=== PATIENT | male | born 1935 | race Caucasian/White ===

== ENCOUNTER → 2020-09-21 09:03 | Outpatient (CLI) | payer MEDICARE, SELFPAY ==
--- NOTE | 2020-09-21 | DI.CT.S_ITS ---
PROCEDURE: CT LUMBAR SPINE WO CON INDICATIONS: spondylolisthesis lumbar region TECHNIQUE: Noncontrast 3 mm thick sections acquired from the T12 level to the sacrum. Sagittal and coronal reformats were constructed. For radiation dose reduction, the following was used: automated exposure control. COMPARISON: [facility], MR, L-SPINE WITHOUT CONTRAST, 08/12/2017, 9:21. [facility] [place] [facility], CR, XR LUMBAR SPINE 2 OR 3 VIEWS, 03/30/2018, 11:47. [facility] [place], CR, XR LUMBAR SPINE 2 OR 3 VIEWS, 12/31/2018, 13:19. FINDINGS: Image quality: There is artifact associated with the metallic hardware. Bones: This patient has transitional lumbar anatomy. For the purposes of this examination, the level with the last well-developed disc space is considered to be L5-S1. By this numbering scheme, there are no ribs seen associated with the level that is labeled as T12. The L5 level is highly sacralized. This numbering scheme chosen to remain consistent with the prior MRI dated 08/12/2017. Postoperative changes are seen, with bilateral pedicle screws at the L3 through L5 levels. The screws appear well placed. Vertical fixation rods are seen. Disc spacers are seen at L3-L4 and L4-L5. Lucency is seen surrounding several screws, including both L3 screws, right worse than left, the right L4 screw, and both L5 screws, right worse than left. There has been removal of portions of the posterior elements. Bone grafting material is noted. Minimal retrolisthesis can be seen at L1-L2, L2-L3, and L3-L4. Minimal anterolisthesis is seen at L4-L5. No displaced fractures are seen. No suspicious lytic or blastic lesions are seen. T11-T12: Mild loss of disc height is seen. Bridging endplate osteophytes are seen. No significant neural foraminal or central canal narrowing can be seen. T12-L1: There is mild loss of disc height seen. Bridging endplate osteophytes are seen. No significant neural foraminal or central canal narrowing can be seen. L1-L2: Kjga-ns-vgcevjnq loss of disc height is seen. Mild to moderate disc bulge is seen. At least moderate bilateral neural foraminal narrowing can be seen. Moderate central canal narrowing is seen. The degree of central canal narrowing is believed to be slightly progressed compared to 2017. L2-L3: The disc height is relatively preserved. At least moderate disc bulge is seen. There is a mild central disc protrusion. At least moderate bilateral neural foraminal narrowing can be seen. Moderate to severe central canal narrowing is seen at this level. These degenerative changes appear progressed compared to 2017. L3-L4: Postoperative changes are seen at this level. Moderate generalized disc bulge is seen. Moderate bilateral neural foraminal narrowing is seen. No definite central canal narrowing can be seen. The degree of central canal narrowing is improved compared to the preoperative MRI. L4-L5: There are postoperative changes seen at this level. Moderate generalized disc bulge is seen. There is at least moderate left-sided and aoaw-so-puxnzfqw right-sided neural foraminal narrowing seen. Mild central canal narrowing is seen. The degrees of central canal narrowing and right-sided neural foraminal narrowing are improved compared to 2017. L5-S1: The disc height is well preserved. Mild disc bulge is seen. Mild to moderate bilateral neural foraminal narrowing can be seen. Mild central canal narrowing is seen. When comparison is made with the prior examination, these findings are similar. Soft tissues: No retroperitoneal masses or hematomas. Visualized aorta is normal in caliber. IMPRESSION: L3 through L5 postoperative hardware, with loosening of several screws noted. Improvement in degrees of narrowing at L3-L4 and L4-L5 compared to preoperative MRI. Mild interval progression of degenerative change compared to 2017 at L1-L2 and L2-L3. Dictated by: Gage Bradford M.D. on 09/21/2020 at 8:58 Approved by: Gage Bradford M.D. on 09/21/2020 at 9:10
== END ==
PROVIDERS: Referring Provider Orthopaedic Surgery Orthopaedic Surgery of the Spine; Visit Provider Orthopaedic Surgery Orthopaedic Surgery of the Spine
DX: M43.16 Spondylolisthesis, lumbar region (principal); M47.816 Spondylosis without myelopathy or radiculopathy, lumbar region; T84.226A Displacement of internal fixation device of vertebrae, initial encounter; M48.061 Spinal stenosis, lumbar region without neurogenic claudication; M48.07 Spinal stenosis, lumbosacral region
CPT/HCPCS: 72131

== ENCOUNTER → 2021-02-21 11:51 | Outpatient (CLI) | payer MEDICARE, SELFPAY ==
[2021-02-21 19:10] LABS: Add Manual Diff / Slide Review NO; Basophils Absolute Auto 100 /uL (0-100); Basophils Percent Auto 1.3 % (0-2); Eosinophils Absolute Auto 200 /uL (0-450); Eosinophils Percent Auto 3.3 % (2-4); Hematocrit 44.6 % (41-53); Hemoglobin 15.3 g/dL (13.5-17.5); Lymphocytes Absolute Auto 1000 /uL (1100-4500); Lymphocytes Percent Auto 16.6 % (25-40); Mean Corpuscular HGB Conc 34.2 % (30-36); Mean Corpuscular Hemoglobin 31.9 PG (26-34); Mean Corpuscular Volume 93.2 fL (80-100); Monocytes Absolute Auto 500 /uL (0-900); Monocytes Percent Auto 8.8 % (3-14); Neutrophils Absolute Auto 4300 /uL (1500-7000); Platelet Count 157 X10^3/uL (150-400); Red Blood Cell Count 4.78 X10^6/uL (4.5-5.9); White Blood Cell Count 6.2 X10^3/uL (4.5-11.0)
[2021-02-21 19:56] LABS: Alanine Aminotransferase 17 IU/L (<50); Albumin 4.2 g/dL (3.5-5.0); Albumin Globulin Ratio 1.8 (1.0-2.8); Alkaline Phosphatase 54 U/L (38-126); Aspartate Aminotransferase 27 IU/L (17-59); BUN Creatinine Ratio 21.3 (6-22); Bilirubin Total 0.9 mg/dL (0.2-1.3); Blood Urea Nitrogen 17 mg/dL (9-20); Calcium 10.2 mg/dL (8.4-10.2); Carbon Dioxide 27 mmol/L (22-32); Chloride 103 mmol/L (98-107); Estimated Glomerular Filt Rate > 60.0 mL/min (>60); Globulin 2.3 g/dL (1.7-4.1); Glucose 111 mg/dL (80-110); HEMOLYSIS < 15 (0-50); Potassium 3.7 mmol/L (3.4-5.1); Sodium 138 mmol/L (137-145); Total Protein 6.5 g/dL (6.3-8.2)
== END ==
PROVIDERS: PCP Family Medicine; Visit Provider Family Medicine
DX: I10 Essential (primary) hypertension (principal); E78.2 Mixed hyperlipidemia
CPT/HCPCS: 80053; 85025

== ENCOUNTER → 2021-08-03 10:01 | Outpatient (CLI) | payer MEDICARE, SELFPAY ==
[2021-08-03 20:12] LABS: Hemoglobin A1C% w Est Avg Glu 5.3 % (4.0-6.0)
[2021-08-03 20:22] LABS: Alanine Aminotransferase 14 IU/L (<50); Albumin 4.3 g/dL (3.5-5.0); Albumin Globulin Ratio 1.8 (1.0-2.8); Alkaline Phosphatase 58 U/L (38-126); Aspartate Aminotransferase 27 IU/L (17-59); BUN Creatinine Ratio 27.2 (6-22); Blood Urea Nitrogen 22 mg/dL (9-20); Carbon Dioxide 32 mmol/L (22-32); Chloride 101 mmol/L (98-107); Cholesterol 187 mg/dL (140-199); Estimated Glomerular Filt Rate > 60.0 mL/min (>60); Globulin 2.4 g/dL (1.7-4.1); Glucose 107 mg/dL (80-110); HDL Cholesterol 43 mg/dL (40-60); HEMOLYSIS < 15 (0-50); LDL Cholesterol Calculated 119 mg/dL (<100); Potassium 3.7 mmol/L (3.4-5.1); Sodium 141 mmol/L (137-145); Total Protein 6.7 g/dL (6.3-8.2); Triglycerides 126 mg/dL (35-150)
[2021-08-03 20:48] LABS: Prostate Specific Antigen Scrn 63.5 ng/mL (0.1-4.0)
== END ==
PROVIDERS: PCP Family Medicine; Visit Provider Family Medicine
DX: I10 Essential (primary) hypertension (principal); Z12.5 Encounter for screening for malignant neoplasm of prostate; Z98.1 Arthrodesis status; N40.0 Benign prostatic hyperplasia without lower urinary tract symptoms
CPT/HCPCS: 80053; 80061; 83036; G0103

== ENCOUNTER → 2021-08-20 09:02 | Outpatient (CLI) | payer MEDICARE, SELFPAY ==
[2021-08-21 21:13] LABS: Prostate Specific Antigen 58.5 ng/mL (0.10-4.00)
== END ==
PROVIDERS: PCP Family Medicine; Visit Provider Family Medicine
DX: N40.1 Benign prostatic hyperplasia with lower urinary tract symptoms (principal); R39.14 Feeling of incomplete bladder emptying
CPT/HCPCS: 84153

== ENCOUNTER → 2021-09-24 12:37 | Outpatient (CLI) | payer MEDICARE, SELFPAY | PROVIDERS: PCP Family Medicine; Referring Provider Urology; Visit Provider Urology | DX: N40.1 Benign prostatic hyperplasia with lower urinary tract symptoms (principal); R39.14 Feeling of incomplete bladder emptying; R39.9 Unspecified symptoms and signs involving the genitourinary system; N42.9 Disorder of prostate, unspecified; R97.20 Elevated prostate specific antigen [PSA] | CPT/HCPCS: 51798; 81002; 87086; 99215 ==

== ENCOUNTER → 2021-10-04 11:07 | Outpatient (CLI) | payer MEDICARE, SELFPAY ==
--- NOTE | 2021-10-04 11:08 | DI.MRI.S_ITS ---
PROCEDURE: MR PELIS WO/W CON INDICATIONS: PSA in the 58 range evaluate prostate TECHNIQUE: Coronal HASTE, axial T1 FSE with fat saturation, 3-plane nonbreath-hold T2 FSE. After the administration of contrast, dynamic axial, delayed axial and coronal VIBE or 2-D FLASH with fat saturation through the pelvis. Optional diffusion weighted imaging and ADC may be performed. COMPARISON: None. FINDINGS: Image quality: Diffusion weighted and dynamic contrast enhanced images are diagnostic. Prostate: Gland size is 6.3 x 5.4 x 5.6 cm; ellipsoid gland volume is 99 mL. Lesion size(s): Lesion 1: 4.3 x 5.4 x 1.7 cm. Lesion location(s) (sector): Lesion 1: Right posterior, lateral peripheral zone, and posteriorly extending across the midline to involve left posteromedial peripheral zone from apex to base. Lesion description: Lesion 1: Large curvilinear area of hypointensity with irregular posterior margin extending through the posterior capsule as well as into the right, possibly left seminal vesicle base and right neurovascular bundle. T2 weighted imaging (T2WI) morphology score: Lesion 1: 5 Diffusion weighted imaging (DWI) morphology score: Lesion 1: 5 Dynamic contrast enhancement (DCE): Lesion 1: Present Lesion PI-RADS score: Lesion 1: PI-RADS 5 Genitourinary system: The urinary bladder is partially decompressed and the wall demonstrates diffuse thickening primarily anteriorly. Bowel and peritoneum: No pathologic free pelvic fluid. Inferior colon and small bowel loops are normal in caliber. Nodes and vessels: There is marked bulky bilateral inguinal, external iliac and common iliac chain adenopathy. There is an abnormal superior rectal chain lymph node. The cranial extent of adenopathy is not visible on this field of view. Soft tissues: Very small bilateral inguinal hernias. Bones: Marrow pattern is heterogeneous. There is an enhancing round lesion in the greater trochanter of the right proximal femur. Partially imaged surgical changes in the lower lumbar spine. IMPRESSION: 1. Large PI-RADS five peripheral zone right sided prostate mass with extraprostatic extension. 2. Extensive metastatic pelvic adenopathy. 3. Heterogeneous marrow signal with at least one discrete enhancing right proximal femur lesion. Further staging studies are recommended. Dictated by: Heather Chambers M.D. on 10/04/2021 at 14:58 Approved by: Heather Chambers M.D. on 10/04/2021 at 15:20
== END ==
PROVIDERS: PCP Family Medicine; Referring Provider Urology; Visit Provider Urology
DX: C77.5 Secondary and unspecified malignant neoplasm of intrapelvic lymph nodes (principal); C80.1 Malignant (primary) neoplasm, unspecified; N42.9 Disorder of prostate, unspecified; R97.20 Elevated prostate specific antigen [PSA]; M89.9 Disorder of bone, unspecified
CPT/HCPCS: 72197; A9579

== ENCOUNTER → 2021-10-19 11:08 | Outpatient (CLI) | payer MEDICARE, SELFPAY ==
[2021-10-19 11:48] LABS: BUN Creatinine Ratio 23.3 (6-22); Blood Urea Nitrogen 17 mg/dL (9-20); Calcium 10.3 mg/dL (8.4-10.2); Carbon Dioxide 31 mmol/L (22-32); Chloride 104 mmol/L (98-107); Estimated Glomerular Filt Rate > 60.0 mL/min (>60); Glucose 104 mg/dL (80-110); HEMOLYSIS < 15 (0-50); Potassium 3.8 mmol/L (3.4-5.1); Sodium 139 mmol/L (137-145)
== END ==
PROVIDERS: PCP Family Medicine; Referring Provider Urology; Visit Provider Urology
DX: C61 Malignant neoplasm of prostate (principal); R97.20 Elevated prostate specific antigen [PSA]; N42.9 Disorder of prostate, unspecified
CPT/HCPCS: 36415; 80048; 99214

== ENCOUNTER → 2021-11-06 11:39 | Outpatient (CLI) | payer MEDICARE, SELFPAY ==
--- NOTE | 2021-11-06 11:41 | DI.CT.S_ITS ---
PROCEDURE: CT ABDOMEN PELVIS W CON INDICATIONS: prostate cancer TECHNIQUE: After the administration of oral and IV contrast, axial sections were acquired from the lung bases to the pubic symphysis. Coronal and sagittal reformats were performed. For radiation dose reduction, the following was used: automated exposure control, adjustment of mA and/or kV according to patient size. COMPARISON: [facility], CT, CT LUMBAR SPINE WO CON, 09/21/2020, 9:08. [facility], CT, ABDOMEN/PELVIS WITH CONTRAST, 04/03/2010, 10:12. [facility], MR, MR PELVIS WO/W CON, 10/04/2021, 11:37. FINDINGS: Image quality: Excellent. Lung bases: Unremarkable. Heart: No significant findings. ABDOMEN: Liver: Unremarkable. Gallbladder: Unremarkable. Biliary ducts: Unremarkable. Pancreas: Unremarkable. Spleen: The spleen is mildly enlarged measuring 14 cm in greatest axial dimension. No focal suspicious splenic lesion can be seen. Adrenal Glands: Unremarkable. Kidneys and Ureters: Unremarkable. Stomach and Bowel: Stomach, small bowel loops, and colon are unremarkable. Colonic diverticulosis is seen, without findings of active diverticulitis. Peritoneum: No abnormal intraperitoneal fluid. No free air. Ventral Wall: No hernia. Abdominal Nodes: No retroperitoneal or mesenteric adenopathy by size criteria. Vessels: Aorta and inferior vena cava are normal in size. Atherosclerotic calcification is noted. PELVIS: Pelvic Organs: The patient's known right-sided prostate mass is much better seen by MRI. Bladder: Moderate circumferential wall thickening can be seen. Pelvic Nodes: Bulky bilateral external iliac chain lymph nodes can be seen. Miscellaneous: There is a fat containing right inguinal hernia. Bones: Several sclerotic foci can be seen within the bones, notably at the T10, L1, and L2 levels. Notably, these are not seen (even in retrospect) on the 09/21/[address] examination. There is a stable bone island seen involving the right proximal femur, which is stable compared to 2009. Lower lumbar postoperative hardware can be seen. Lucency is again seen adjacent to the screws, notably at the right L5 screw. Generalized degenerative changes are seen. IMPRESSION: The patient's known right prostate mass is much better seen by MRI. Bulky bilateral external iliac chain lymph nodes are seen. Bony metastases are seen, which are new from prior imaging. Lower lumbar postoperative hardware, with lucency seen adjacent to the screws. Incidental note is made of: Mild splenomegaly. Diverticulosis Moderate circumferential bladder wall thickening Fat containing right inguinal hernia Dictated by: Gage Bradford M.D. on 11/06/2021 at 17:09 Approved by: Gage Bradford M.D. on 11/06/2021 at 17:16
== END ==
PROVIDERS: PCP Family Medicine; Referring Provider Urology; Visit Provider Urology
DX: C61 Malignant neoplasm of prostate (principal); C79.51 Secondary malignant neoplasm of bone; R59.0 Localized enlarged lymph nodes; R97.20 Elevated prostate specific antigen [PSA]; N42.9 Disorder of prostate, unspecified; R39.9 Unspecified symptoms and signs involving the genitourinary system
CPT/HCPCS: 74177; 96402; 99214; J9217; Q9967

== ENCOUNTER → 2021-11-15 08:52 | Outpatient (CLI) | payer MEDICARE, SELFPAY ==
--- NOTE | 2021-11-15 09:12 | DI.NM.S_ITS ---
PROCEDURE: NM BONE SCAN WHOLE BODY RADIOPHARMACEUTICAL: 19.9 mCi Tc-99m MDP IV. INDICATIONS: Metastisis TECHNIQUE: Delayed whole-body scintigrams were obtained approximately 3-4 hours after intravenous injection of radiotracer. Anterior and posterior views were acquired from vertex to feet. Additional left and right oblique views of the pelvis were obtained. COMPARISON: [facility], CT, CT LUMBAR SPINE WO CON, 09/21/2020, 9:08. [facility], CT, CT ABDOMEN PELVIS W CON, 11/06/2021, 12:51. FINDINGS: There are foci of increased uptake in lumbar spine involving L1 and L2, and proximal tibia suspicious for metastasis. No lesions are identified in skull, clavicles, ribs and bony pelvis. There are foci of low level increased uptake in cervical, thoracic and lumbar spine with distribution indistinguishable from degenerative disc and facet disease; early metastasis to spine could be obscured by degenerative changes. There are foci of increased periarticular activity involving shoulders, sternoclavicular joints, elbows, wrists, hands, hips and SI joints, compatible with degenerative/arthritic changes. Increased uptake at the sternomanubrial junction is noted, indeterminate but most likely degenerative in nature. There is left knee hemiarthroplasty. IMPRESSION: 1. Foci of abnormal uptake in L1, L2 and proximal right tibia, highly suspicious for osseous metastases. Dictated by: Thania Varela M.D. on 11/15/2021 at 13:16 Approved by: Thania Varela M.D. on 11/15/2021 at 13:23
== END ==
PROVIDERS: PCP Family Medicine; Referring Provider Urology; Visit Provider Urology
DX: C61 Malignant neoplasm of prostate (principal); R97.20 Elevated prostate specific antigen [PSA]; M85.851 Other specified disorders of bone density and structure, right thigh
CPT/HCPCS: 77080; 78306; A9503

== ENCOUNTER → 2021-12-06 11:33 | Outpatient (CLI) | payer MEDICARE, SELFPAY ==
[2021-12-06 19:42] LABS: Prostate Specific Antigen 6.41 ng/mL (0.10-4.00)
== END ==
PROVIDERS: PCP Family Medicine; Visit Provider Urology
DX: C61 Malignant neoplasm of prostate (principal)
CPT/HCPCS: 84153

== ENCOUNTER → 2021-12-19 12:04 | Outpatient (CLI) | payer MEDICARE, SELFPAY ==
[2021-12-19 13:25] LABS: Prostate Specific Antigen 4.27 ng/mL (0.10-4.00)
== END ==
PROVIDERS: PCP Family Medicine; Referring Provider Urology; Visit Provider Urology
DX: C61 Malignant neoplasm of prostate (principal); N42.9 Disorder of prostate, unspecified; R97.20 Elevated prostate specific antigen [PSA]; M85.89 Other specified disorders of bone density and structure, multiple sites
CPT/HCPCS: 36415; 84153; 99214

== ENCOUNTER → 2022-01-31 09:27 | Outpatient (CLI) | payer MEDICARE, SELFPAY ==
[2022-01-31 19:10] LABS: Prostate Specific Antigen 1.71 ng/mL (0.10-4.00)
== END ==
PROVIDERS: PCP Family Medicine; Visit Provider Urology
DX: C61 Malignant neoplasm of prostate (principal)
CPT/HCPCS: 84153

== ENCOUNTER → 2022-04-29 10:54 | Outpatient (CLI) | payer MEDICARE, SELFPAY ==
[2022-04-29 22:47] LABS: Prostate Specific Antigen 0.459 ng/mL (0.10-4.00)
== END ==
PROVIDERS: PCP Family Medicine; Visit Provider Urology
DX: R97.20 Elevated prostate specific antigen [PSA] (principal)
CPT/HCPCS: 84153

== ENCOUNTER → 2022-07-30 10:23 | Outpatient (CLI) | payer MEDICARE, SELFPAY ==
[2022-07-30 19:26] LABS: Prostate Specific Antigen 0.133 ng/mL (0.10-4.00)
== END ==
PROVIDERS: PCP Family Medicine; Visit Provider Urology
DX: C61 Malignant neoplasm of prostate (principal)
CPT/HCPCS: 84153

== ENCOUNTER → 2022-10-16 09:21 | Outpatient (CLI) | payer MEDICARE, SELFPAY ==
[2022-10-16 19:52] LABS: Add Manual Diff / Slide Review NO; Basophils Absolute Auto 100 /uL (0-100); Basophils Percent Auto 1.3 % (0-2); Eosinophils Absolute Auto 200 /uL (0-450); Eosinophils Percent Auto 3.7 % (2-4); Hematocrit 41.4 % (41-53); Hemoglobin 14.4 g/dL (13.5-17.5); Lymphocytes Absolute Auto 1100 /uL (1100-4500); Lymphocytes Percent Auto 16.9 % (25-40); Mean Corpuscular HGB Conc 34.9 % (30-36); Mean Corpuscular Hemoglobin 31.6 PG (26-34); Mean Corpuscular Volume 90.4 fL (80-100); Monocytes Absolute Auto 600 /uL (0-900); Monocytes Percent Auto 9.3 % (3-14); Neutrophils Absolute Auto 4400 /uL (1500-7000); Neutrophils Percent Auto 68.8 % (50-75); Platelet Count 155 X10^3/uL (150-400); Red Blood Cell Count 4.58 X10^6/uL (4.5-5.9); Red Cell Distribution Width 12.6 % (11.6-14.8); White Blood Cell Count 6.4 X10^3/uL (4.5-11.0)
[2022-10-16 20:19] LABS: Alanine Aminotransferase 25 IU/L (<50); Albumin 4.3 g/dL (3.5-5.0); Albumin Globulin Ratio 1.6 (1.0-2.8); Alkaline Phosphatase 51 U/L (38-126); Aspartate Aminotransferase 30 IU/L (17-59); BUN Creatinine Ratio 22.9 (6-22); Bilirubin Total 0.9 mg/dL (0.2-1.3); Blood Urea Nitrogen 19 mg/dL (9-20); Calcium 9.7 mg/dL (8.4-10.2); Carbon Dioxide 31 mmol/L (22-32); Chloride 101 mmol/L (98-107); Cholesterol 194 mg/dL (140-199); Estimated Glomerular Filt Rate > 60 mL/min (>60); Globulin 2.7 g/dL (1.7-4.1); Glucose 122 mg/dL (80-110); HDL Cholesterol 40 mg/dL (40-60); HEMOLYSIS < 15 (0-50); LDL Cholesterol Calculated 127 mg/dL (<100); Potassium 3.3 mmol/L (3.4-5.1); Sodium 140 mmol/L (137-145); Triglycerides 135 mg/dL (35-150)
[2022-10-16 20:46] LABS: Prostate Specific Antigen 0.091 ng/mL (0.10-4.00)
== END ==
PROVIDERS: Urology; PCP Family Medicine; Visit Provider Family Medicine
DX: E78.2 Mixed hyperlipidemia (principal); I10 Essential (primary) hypertension; R97.20 Elevated prostate specific antigen [PSA]; C61 Malignant neoplasm of prostate
CPT/HCPCS: 80053; 80061; 84153; 85025

== ENCOUNTER → 2022-12-20 11:45 | Outpatient (CLI) | payer MEDICARE, SELFPAY ==
[2022-12-20 13:36] LABS: Prostate Specific Antigen < 0.064 ng/mL (0.10-4.00)
== END ==
PROVIDERS: PCP Family Medicine; Referring Provider Urology; Visit Provider Urology
DX: C61 Malignant neoplasm of prostate (principal); R39.14 Feeling of incomplete bladder emptying; R39.9 Unspecified symptoms and signs involving the genitourinary system; Z79.899 Other long term (current) drug therapy
CPT/HCPCS: 36415; 51798; 81002; 84153; 96372; 96402; 99214; J0897; J9217

== ENCOUNTER → 2023-01-13 08:37 | Outpatient (CLI) | payer MEDICARE, SELFPAY ==
--- NOTE | 2023-01-13 08:39 | DI.MRI.S_ITS ---
PROCEDURE: MR LUMBAR SPINE WO/W CON INDICATIONS: bony tenderness midline lumbar, increased pain, TECHNIQUE: Noncontrast sagittal T1 spin echo and T2 fast echo, sagittal STIR, and T2 fast spin echo through the lumbar spine. In cases with scoliosis, additional coronal T2 fast spin echo may be performed. COMPARISON: [facility], MR, L-SPINE WITHOUT CONTRAST, 08/12/2017, 9:21. [facility] ([place]), CR, XR LUMBAR SPINE 2-3V, 01/02/2023, 14:56. FINDINGS: Image quality: Partially degraded by metallic artifact. Alignment and Curvature: 5 lumbar type vertebral bodies are present by plain film. 2 mm of retrolisthesis of T12 on L1. 8 mm of retrolisthesis of L1 on L2. 7 mm of retrolisthesis of L2 on L3. 6 mm of retrolisthesis of L3 on L4. 3 mm of anterolisthesis of L5 on S1. Bone Marrow: Marrow is of normal overall signal. No acute vertebral body compression fractures. Posterior fusion hardware at L3-L5, new since the prior examination. Moderate reactive signal within the endplates adjacent to the L2-L3 intervertebral disc. Mild reactive signal within the remaining lumbar and lower thoracic endplates. Spinal Cord: Conus medullaris terminates at the upper L1 level. Visualized cord demonstrates normal signal and size. Paraspinous Soft Tissues: No paravertebral masses. T12-L1: Moderate disc desiccation. Mild diffuse disc bulge. Mild facet and ligamentum flavum hypertrophy. Mild canal stenosis. Mild bilateral foraminal stenosis. No significant change. L1-L2: Moderate disc height loss and desiccation. Mild diffuse disc bulge. Mild facet and ligamentum flavum hypertrophy. Mild epidural lipomatosis. Mild canal stenosis. Moderate bilateral foraminal stenosis. L2-L3: Moderate disc height loss and desiccation. Mild diffuse disc bulge. Mild facet and ligamentum flavum hypertrophy. Mild epidural lipomatosis. There is increased, severe canal stenosis. Increased, moderate bilateral foraminal stenosis. L3-L4: Posterior fusion. Interbody device placement. Mild residual disc bulge. Superimposed small central protrusion. Mild facet and ligamentum flavum hypertrophy. Increased, moderate canal stenosis. No change in moderate subarticular foraminal stenosis bilaterally. Increased left lateral recess stenosis associated with left L4 nerve root compression. L4-L5: Posterior fusion. Mild residual disc bulge/osteophyte. Mild bilateral facet hypertrophy. Moderate canal stenosis is unchanged. Increased, moderate left and moderate to severe right foraminal stenosis. Right L4 nerve root compression. L5-S1: Mild disc desiccation and diffuse disc bulge. Mild bilateral facet hypertrophy. Mild canal stenosis. Moderate bilateral foraminal stenosis. No significant change. IMPRESSION: 1. Postsurgical sequelae. 2. Multilevel degenerative disc and facet disease, as well as ligamentum flavum hypertrophy and epidural lipomatosis. 3. Multilevel canal stenoses, worst at L2-L3 where there is severe canal stenosis. Moderate canal stenoses at L3-L4 and L4-L5. 4. Multilevel foraminal stenoses, worst at L4-L5 where there is associated intraforaminal nerve root compression. 5. Left lateral recess stenosis at L3-L4 associated with left L4 nerve root compression. 6. Recommend correlation with clinical symptoms to ascertain relevance of these findings. Dictated by: Rosemary Benjamin M.D. on 01/13/2023 at 11:05 Transcribed by: NITO on 01/13/2023 at 11:39 Approved by: Rosemary Benjamin M.D. on 01/13/2023 at 16:36
== END ==
PROVIDERS: PCP Family Medicine; Referring Provider Family Medicine; Visit Provider Family Medicine
DX: C61 Malignant neoplasm of prostate (principal); M48.061 Spinal stenosis, lumbar region without neurogenic claudication; M48.07 Spinal stenosis, lumbosacral region; M51.36 Other intervertebral disc degeneration, lumbar region; M51.37 Other intervertebral disc degeneration, lumbosacral region; M47.896 Other spondylosis, lumbar region; M47.897 Other spondylosis, lumbosacral region; M54.50 Low back pain, unspecified; M85.89 Other specified disorders of bone density and structure, multiple sites; Z98.1 Arthrodesis status
CPT/HCPCS: 72158; A9579

== ENCOUNTER 2023-02-26 11:07 | Outpatient (CLI) | payer MEDICARE, SELFPAY ==
--- NOTE | 2023-02-26 11:08 | DI.RAD.S_ITS ---
PROCEDURE: PAIN L INTERLAMINAR/CAUDAL INJ INDICATIONS: SPONDYLOSIS COMPARISON: [facility] ([place]), CR, XR LUMBAR SPINE 2-3V, 01/02/2023, 14:56. FINDINGS: A caudally placed catheter is seen within the sacral canal. The position of the tip of the catheter was confirmed with injection of a small amount of iodinated contrast. IMPRESSION: Intraprocedural examination within normal limits. Dictated by: Gage Bradford M.D. on 02/26/2023 at 11:04 Approved by: Gage Bradford M.D. on 02/26/2023 at 11:05
[2023-02-26 11:15] VITALS: BP 156/95; PULSE 74; RESP 16; TEMP 36.7; O2SAT 98
[2023-02-26 11:24] VITALS: BP 164/80; PULSE 73; RESP 16; O2SAT 65
[2023-02-26 11:29] VITALS: BP 152/75; PULSE 66; RESP 16; O2SAT 98
[2023-02-26 11:34] VITALS: BP 151/79; PULSE 65; RESP 16; O2SAT 98
[2023-02-26] MEDS: IOPAMIDOL 15 ML VIAL 3 ML INJ (11:36)
[2023-02-26] MEDS: DEXAMETHASONE 10 MG/ML VIAL 20 MG INJ (11:36)
[2023-02-26 11:39] VITALS: BP 147/76; PULSE 64; RESP 20; O2SAT 97
[2023-02-26 11:42] VITALS: BP 144/70; PULSE 61; RESP 16; O2SAT 97
--- NOTE | 2023-02-26 11:45 | P.PCN_ITS ---
Date/Time/Diagnoses Date of procedure: 02/26/23 Time of procedure: 11:30 Procedure Notes Physician: Waldemar Powell Total Fluoroscopy time (seconds): 20 Total sedation minutes: 0 Procedure in detail & Post-procedure care: Caudal Epidural Steroid Injection Indications: Rose is presenting for treatment of lumbar radiculopathy with low back and leg pain. Preoperative diagnosis: Left lumbar radiculopathy Postoperative diagnosis: Same Focused Examination: Ax3 Mood and affect are normal Vital Signs: VSS Consent: Following review of allergies and potential side effects/complications, including, but not necessarily limited to, infection, allergic reaction, local tissue breakdown, stroke, temporary or permanent nerve injury, paralysis, and possible , the patient indicated that they understood and agreed to proceed.? An informed consent document was signed by the patient, witnessed by a nurse and placed in the patient's chart.? Additionally, other treatment options including medications and physical therapy were reviewed with the patient. All questions were answered. Site was then marked. Anesthesia: Local Position: Prone Monitoring: NIBP, Pulse oximetry, 3 lead EKG Needle used: 17 gauge Touhy with 19 gauge TheraCath Epidural Catheter Contrast: Isovue 300-M 2mL Injectate: Dexamethasone 15 mg with 1% lidocaine 2 mL and normal saline 1 mL Technique: The skin was prepped with chloraprep and then draped in a sterile fashion. Time out was performed as per protocol. Oxygen applied via NC. The entry point for entering/approaching the epidural space by a caudal approach through the sacral hiatus was identified. Skin and subcutaneous structures of the needle entry site was then infiltrated with 3 mL of lidocaine 1%. Under AP and lateral control, the needle was guided through the sacral hiatus to the S3 level. The catheter was then advanced to L5-S1 using intermittent fluoroscopy. Contrast was then injected and the spread was consistent with the epidural space. There was no evidence for intravascular or intrathecal uptake. After negative aspiration, the above-mentioned injectate was then slowly administered and the needle withdrawn. The patient expressed no unusual discomfort or paresthesias during needle positioning or injection. Band-Aids applied to injection sites. EBL: less than 1 ml Complications: None Post Procedure: Patient was taken to the recovery and monitored. The patient was provided a Pain Log to continue to record the patient's response to the target- specific procedure prior to the patient's follow-up visit with the referring physician. Patient was stable upon discharge. Detailed post procedure instructions were provided. Patient was asked to call in the event of worsening pain, fever, weakness, numbness or bladder or bowel incontinence.
== END 2023-02-26 11:49 | disposition home or self-care (01) ==
LOC: RAD 11:08
PROVIDERS: PCP Family Medicine; Referring Provider Anesthesiology; Visit Provider Anesthesiology
DX: M54.16 Radiculopathy, lumbar region (principal)
CPT/HCPCS: 62323; J1100

== ENCOUNTER → 2023-03-17 10:30 | Outpatient (CLI) | payer MEDICARE, SELFPAY ==
[2023-03-17 20:40] LABS: Prostate Specific Antigen 0.116 ng/mL (0.10-4.00)
== END ==
PROVIDERS: PCP Family Medicine; Visit Provider Urology
DX: C61 Malignant neoplasm of prostate (principal)
CPT/HCPCS: 84153

== ENCOUNTER → 2023-05-12 10:45 | Outpatient (CLI) | payer MEDICARE, SELFPAY ==
[2023-05-12 20:05] LABS: Alanine Aminotransferase 23 IU/L (<50); Albumin Globulin Ratio 1.7 (1.0-2.8); Alkaline Phosphatase 41 U/L (38-126); Aspartate Aminotransferase 32 IU/L (17-59); BUN Creatinine Ratio 22.8 (6-22); Bilirubin Total 0.6 mg/dL (0.2-1.3); Blood Urea Nitrogen 18 mg/dL (9-20); Calcium 9.4 mg/dL (8.4-10.2); Carbon Dioxide 28 mmol/L (22-32); Chloride 102 mmol/L (98-107); Estimated Glomerular Filt Rate > 60 mL/min (>60); Globulin 2.3 g/dL (1.7-4.1); Glucose 150 mg/dL (80-110); HEMOLYSIS 23 (0-50); Potassium 3.6 mmol/L (3.4-5.1); Sodium 137 mmol/L (137-145); Total Protein 6.3 g/dL (6.3-8.2)
[2023-05-14 03:30] LABS: HBsAg Screen Negative (Negative); Hepatitis A Antibody IgM Negative (Negative); Hepatitis B Core Antibody IgM Negative (Negative); Hepatitis C Antibody Non Reactive (Non Reactive)
[2023-05-16 04:04] LABS: Hepatitis A Ab IgM Negative (Negative); Hepatitis A Ab Total Positive (Negative)
== END ==
PROVIDERS: PCP Family Medicine; Visit Provider Family Medicine
DX: Z20.5 Contact with and (suspected) exposure to viral hepatitis (principal); R19.7 Diarrhea, unspecified
CPT/HCPCS: 80053; 80074; 86708

== ENCOUNTER 2023-05-14 10:09 | Outpatient (CLI) | payer MEDICARE, SELFPAY ==
[2023-05-14] VITALS (8 sets, daily range): BP systolic 147–186; BP diastolic 75–88; PULSE 53–68; RESP 15–22; TEMP 36.5; O2SAT 97–99
--- NOTE | 2023-05-14 10:10 | DI.RAD.S_ITS ---
PROCEDURE: PAIN L/S TRANSFORAMINAL INJECT INDICATIONS: RADICULOPATHY COMPARISON: None. FINDINGS: Fluoroscopic spot filming was performed to verify placement of spinal needles at the L4-5 level(s), as labeled on the films. Appropriate location(s) of the needle tip(s) was confirmed by injection of iodinated contrast. IMPRESSION: Fluoro guidance was provided intraoperatively for left L4-5 transforaminal epidural steroid injection performed by the ordering physician. Dictated by: Christian Vivar M.D. on 05/14/2023 at 12:57 Approved by: Christian Vivar M.D. on 05/14/2023 at 12:58
[2023-05-14] MEDS: MIDAZOLAM 2 MG/2 ML VIAL 1 MG IV (11:56)
[2023-05-14] MEDS: DEXAMETHASONE 10 MG/ML VIAL INJ (11:58)
[2023-05-14] MEDS: IOPAMIDOL 15 ML VIAL 3 ML INJ (11:58)
--- NOTE | 2023-05-14 12:14 | P.PCN_ITS ---
Date/Time/Diagnoses Date of procedure: 05/14/23 Time of procedure: 11:30 Procedure Notes Physician: Waldemar Powell Total Fluoroscopy time (seconds): 25 Total sedation minutes: 12 Procedure in detail & Post-procedure care: Left L4-5 Transforaminal Epidural Steroid Injection Indications: Rose is presenting for treatment of lumbar radiculopathy with low back and leg pain. Preoperative diagnosis: Lumbar radiculopathy Postoperative diagnosis: Same Focused Examination: Ax3 Mood and affect are normal Vital Signs: VSS ASA: 2 Consent: Following review of allergies and potential side effects/complications, including, but not necessarily limited to, infection, allergic reaction, local tissue breakdown, stroke, temporary or permanent nerve injury, paralysis, and possible , the patient indicated that they understood and agreed to proceed.? An informed consent document was signed by the patient, witnessed by a nurse and placed in the patient's chart.? Additionally, other treatment options including medications and physical therapy were reviewed with the patient. All questions were answered. Site was then marked. Anesthesia: After review of previous anesthetic history and IV conscious sedation, the patient was deemed safe to proceed with today's procedure with IV conscious sedation. IV sedation was accomplished with midazolam 1 mg administered by the RN after order by Dr. Powell. Sedation was titrated to patient comfort during the course of the procedure. Patient remained responsive to all verbal commands. Position: Prone Monitoring: NIBP, Pulse oximetry, 3 lead EKG Needle used: 22G 5 inch spinal needle Contrast: Isovue 300M Injectate: 7.5 mg Dexamethasone mixed with 1% lidocaine 1 ml and normal saline 1 mL Technique: The skin was prepped with chloraprep and draped in a sterile fashion. Time out was performed as per protocol. Oxygen applied via NC. Skin and subcutaneous structures of the needle entry site were infiltrated with 3mL of lidocaine 1%. Under fluoroscopic guidance, using an ipsilateral oblique view,?a 22 gauge 5 inch needle was advanced to the base of the L4?pedicle.? The needle was advanced to the superio-posterior aspect of the neural foramen under lateral view.? Oblique and AP views were rechecked. No paresthesias noted by the patient during needle placement. In AP view and utilizing real-time digital subtraction fluoroscopy, 2 ml contrast was slowly injected. Epidural spread was observed without evidence for intravascular nor intrathecal uptake. Contrast spread was seen craniocaudally. The above injectate was then administered, and the needle was subsequently withdrawn. Band-Aids applied to injection sites. EBL: less than 1 ml Complications: None Post Procedure: Patient was taken to the recovery and monitored. The patient was provided a Pain Log to continue to record the patient's response to the target- specific procedure prior to the patient's follow-up visit with the referring physician. Patient was stable upon discharge. Detailed post procedure instructions were provided. Patient was asked to call in the event of worsening pain, fever, weakness, numbness or bladder or bowel incontinence.
== END 2023-05-14 12:27 | disposition home or self-care (01) ==
PROVIDERS: PCP Family Medicine; Referring Provider Anesthesiology; Visit Provider Anesthesiology
DX: M54.16 Radiculopathy, lumbar region (principal)
CPT/HCPCS: 64483; 99152; J1100; J2250

== ENCOUNTER → 2023-06-10 11:29 | Outpatient (CLI) | payer MEDICARE, SELFPAY ==
--- NOTE | 2023-06-10 11:31 | DI.RAD.S_ITS ---
PROCEDURE: XR HIP W PEL IF DONE MARCIA MIN 4V INDICATIONS: Hip pain s/p fall TECHNIQUE: AP pelvis with lateral view(s) of the bilateral hip(s). COMPARISON: [facility], CT, CT ABDOMEN PELVIS W CON, 11/06/2021, 12:51. [facility] ([place]), CR, XR LUMBAR SPINE 2-3V, 01/02/2023, 14:56. [facility], [place], [place] BONE SCAN WHOLE BODY, 11/15/2021, 9:49. FINDINGS: Bones: No fractures or dislocations. Pelvic ring appears intact. No suspicious bony lesions. Moderate left and [id number] right axial hip joint space narrowing with mild bilateral periarticular osteophyte formation. 3.4 cm sclerotic bony lesion involving the proximal right femur with intact adjacent bony cortex and no periosteal reaction. Postoperative changes of the lower lumbar spine incompletely evaluated. Soft tissues: The visualized bowel gas pattern is normal. No suspicious soft tissue calcifications. IMPRESSION: 1. 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 2. Bone island again seen involving the proximal right femur, which appears similar prior exam. Dictated by: Allan Penny [facility] Interpreted: Kory Turcios MD on 06/10/2023 at 13:55 Approved by: Kory Turcios M.D. on 06/11/2023 at 7:11
== END ==
PROVIDERS: PCP Family Medicine; Referring Provider Anesthesiology; Visit Provider Anesthesiology
DX: M16.0 Bilateral primary osteoarthritis of hip (principal); M25.551 Pain in right hip; M25.552 Pain in left hip; M89.9 Disorder of bone, unspecified; M47.26 Other spondylosis with radiculopathy, lumbar region; M54.50 Low back pain, unspecified; Z68.31 Body mass index [BMI] 31.0-31.9, adult
CPT/HCPCS: 73522; 99213

== ENCOUNTER → 2023-06-23 10:29 | Outpatient (CLI) | payer MEDICARE, SELFPAY ==
[2023-06-23 20:12] LABS: Alanine Aminotransferase 20 IU/L (<50); Albumin 4.1 g/dL (3.5-5.0); Albumin Globulin Ratio 1.7 (1.0-2.8); Alkaline Phosphatase 49 U/L (38-126); Aspartate Aminotransferase 25 IU/L (17-59); BUN Creatinine Ratio 29.5 (6-22); Blood Urea Nitrogen 23 mg/dL (9-20); Calcium 10.2 mg/dL (8.4-10.2); Carbon Dioxide 29 mmol/L (22-32); Chloride 101 mmol/L (98-107); Estimated Glomerular Filt Rate > 60 mL/min (>60); Globulin 2.4 g/dL (1.7-4.1); Glucose 111 mg/dL (80-110); HEMOLYSIS < 15 (0-50); Potassium 3.3 mmol/L (3.4-5.1); Sodium 138 mmol/L (137-145); Total Protein 6.5 g/dL (6.3-8.2)
[2023-06-23 20:19] LABS: Hemoglobin A1C% w Est Avg Glu 5.2 % (4.0-6.0)
[2023-06-23 20:39] LABS: Prostate Specific Antigen 2.06 ng/mL (0.10-4.00)
[2023-06-23 20:42] LABS: TSH w/ Reflex to FT4 0.15 uIU/mL (0.47-4.68)
[2023-06-23 23:56] LABS: Free T4, Direct Thyroxine 1.46 ng/dL (0.78-2.19)
== END ==
PROVIDERS: PCP Family Medicine; Visit Provider Family Medicine
DX: E78.2 Mixed hyperlipidemia (principal); R73.9 Hyperglycemia, unspecified; N42.9 Disorder of prostate, unspecified; E87.6 Hypokalemia; I10 Essential (primary) hypertension; C61 Malignant neoplasm of prostate
CPT/HCPCS: 80053; 83036; 84153; 84439; 84443

== ENCOUNTER → 2023-06-27 10:50 | Outpatient (CLI) | payer MEDICARE, SELFPAY ==
[2023-06-27 11:01] LABS: Appearance Urine UA CLEAR; Bilirubin Urine UA NEGATIVE (NEGATIVE); Color Urine UA YELLOW; Glucose Urine UA NEGATIVE (Negative); Ketones Urine UA NEGATIVE (NEGATIVE); Leukocyte Esterase Urine UA 1+ (NEGATIVE); Nitrite Urine UA NEGATIVE (Negative); Occult Blood Urine UA NEGATIVE (Negative); Protein Urine UA NEGATIVE (Negative); Specific Gravity Urine UA 1.015 (1.000-1.035); pH Urine UA 6.5 (4.5-8.0)
[2023-06-27 11:10] LABS: RBC Urine 1-5/HPF (0-5/HPF); WBC Urine 5-10/HPF (0-5/HPF)
[2023-06-27 11:11] LABS: Bacteria Urine Few (2-10); Culture Indicated Urine Specimen Cultured; Squamous Epithelial Cell Urine 1-5 /HPF (0-5/HPF)
== END ==
PROVIDERS: PCP Family Medicine; Visit Provider Urology
DX: R30.0 Dysuria (principal); C61 Malignant neoplasm of prostate; N42.9 Disorder of prostate, unspecified; M85.89 Other specified disorders of bone density and structure, multiple sites; R39.9 Unspecified symptoms and signs involving the genitourinary system; N32.0 Bladder-neck obstruction; Z79.818 Long term (current) use of other agents affecting estrogen receptors and estrogen levels
CPT/HCPCS: 51798; 81001; 81002; 87077; 87086; 87147; 87186; 96372; 96402; 99214; J0897; J9217

== ENCOUNTER → 2023-07-31 11:21 | Outpatient (CLI) | payer MEDICARE, SELFPAY ==
[2023-07-31 19:45] LABS: Prostate Specific Antigen 5.67 ng/mL (0.10-4.00)
== END ==
PROVIDERS: PCP Family Medicine; Visit Provider Urology
DX: C61 Malignant neoplasm of prostate (principal)
CPT/HCPCS: 84153

== ENCOUNTER → 2023-08-12 11:06 | Outpatient (CLI) | payer MEDICARE, SELFPAY ==
--- NOTE | 2023-08-12 11:08 | DI.NM.S_ITS ---
PROCEDURE: [place] BONE SCAN WHOLE BODY RADIOPHARMACEUTICAL: 22 mCi Tc-99m MDP IV. INDICATIONS: Prostate cancer with rising PSA on androgen deprivation TECHNIQUE: Delayed whole-body scintigrams were obtained approximately 3-4 hours after intravenous injection of radiotracer. Anterior and posterior views were acquired from vertex to feet. COMPARISON: [facility], MR, MR LUMBAR SPINE WO/W CON, 01/13/2023, 9:08. [facility], CT, CT ABDOMEN PELVIS W CON, 11/06/2021, 12:51. [facility], CT, CT ABDOMEN PELVIS W CON, 08/12/2023, 12:17. [facility], [place], [place] BONE SCAN WHOLE BODY, 11/15/2021, 9:49. FINDINGS: Foci of increased activity in lumbar spine and proximal right femur are less conspicuous. Focal uptake it at the sternum root junction is again noted, unchanged, indeterminate. There is increased parents activity, likely secondary to paranasal sinus disease. No lesions are identified in skull, clavicles, scapulae, ribs and bony pelvis. Low-level increased activity in cervical, thoracic and lumbar spine most likely secondary to degenerative disc and facet disease; early metastasis to spine could be obscured by degenerative changes. There are foci of increased periarticular activity compatible with degenerative/arthritic changes. IMPRESSION: Improved bone scan. Previously identified suspicious osseous lesions are less conspicuous. Dictated by: Thania Varela M.D. on 08/12/2023 at 16:53 Approved by: Thania Varela M.D. on 08/13/2023 at 7:41
[2023-08-12 12:00] LABS: Estimated Glomerular Filt Rate > 60 mL/min (>60)
--- NOTE | 2023-08-12 12:20 | DI.CT.S_ITS ---
PROCEDURE: CT ABDOMEN PELVIS W CON INDICATIONS: Prostate cancer with rising PSA on androgen deprivation TECHNIQUE: After the administration of intravenous contrast, axial sections acquired from the lung bases to the pubic symphysis. Coronal and sagittal reformats were performed. For radiation dose reduction, the following was used: automated exposure control, adjustment of mA and/or kV according to patient size. COMPARISON: [facility], CT, CT ABDOMEN PELVIS W CON, 11/06/2021, 12:51. FINDINGS: Image quality: Excellent. CT imaging shows the previously noted bulky adenopathy involving both iliac chains has mildly improved from the prior examination with the largest lymph node now measuring approximately 3.5 cm in maximal dimension on the right. Retroperitoneal periaortic adenopathy is improved from prior examination. There are new gallstones present within the patient's gallbladder. Liver, adrenals, right kidney, pancreas, right kidney, and visualized large and small bowel appear within normal limits other than colonic diverticulosis without evidence for diverticulitis. Again noted is postsurgical changes of fusion involving the lower lumbar spine with some lucency around the pedicle screws stable from prior examination. Coronary artery and atherosclerotic calcifications are present. There is splenomegaly the spleen measuring 15 cm in maximal dimension. There is a 3-4 mm nonobstructing left renal calculus present. The lung bases are clear. Previously noted bony metastatic disease remains stable over the interval. There is some induration in the root of the mesentery as well as some prominent lymph nodes in the patient's right lower quadrant which appears stable. No free fluid is identified. IMPRESSION: 1. Improvement in previously noted bulky adenopathy along both iliac chains and both inguinal regions with the largest lymph node in the right inguinal region now measuring approximately 3.5 cm in maximal dimension. 2. Stable bony metastatic disease. 3. Cholelithiasis. 4. Splenomegaly with spleen measuring 15 cm in maximal dimension. 5. 3-4 mm nonobstructing left renal calculus. 6. Colonic diverticulosis status for diverticulitis. 7. Coronary artery and atherosclerotic vascular calcifications. 8. Stable prominent lymph nodes in the right lower quadrant and induration in the root of the mesentery. 9. Mild diffuse bladder wall thickening. 10. Findings of postsurgical fusion involving the lower lumbar spine with previously noted lucency around the pedicle screws stable from prior examination. 11. Previously noted retroperitoneal adenopathy in the periaortic region has improved from prior examination. Dictated by: Angel Jordan M.D. on 08/12/2023 at 14:17 Approved by: Angel Jordan M.D. on 08/12/2023 at 14:37
== END ==
PROVIDERS: Radiology Diagnostic Radiology; PCP Family Medicine; Referring Provider Urology; Visit Provider Urology
DX: C61 Malignant neoplasm of prostate (principal); R97.21 Rising PSA following treatment for malignant neoplasm of prostate; R59.0 Localized enlarged lymph nodes; K80.20 Calculus of gallbladder without cholecystitis without obstruction; R16.1 Splenomegaly, not elsewhere classified; N20.0 Calculus of kidney; K57.30 Diverticulosis of large intestine without perforation or abscess without bleeding; I25.10 Atherosclerotic heart disease of native coronary artery without angina pectoris; Z98.1 Arthrodesis status
CPT/HCPCS: 36415; 74177; 78306; 82565; A9503

== ENCOUNTER → 2023-09-24 13:37 | Outpatient (CLI) | payer MEDICARE, SELFPAY ==
[2023-09-24 19:43] LABS: BUN Creatinine Ratio 21.4 (6-22); Blood Urea Nitrogen 18 mg/dL (9-20); Calcium 10.1 mg/dL (8.4-10.2); Carbon Dioxide 31 mmol/L (22-32); Chloride 100 mmol/L (98-107); Estimated Glomerular Filt Rate > 60 mL/min (>60); Glucose 124 mg/dL (80-110); HEMOLYSIS < 15 (0-50); Potassium 3.3 mmol/L (3.4-5.1); Sodium 138 mmol/L (137-145)
[2023-09-24 20:10] LABS: Prostate Specific Antigen 9.15 ng/mL (0.10-4.00)
== END ==
PROVIDERS: PCP Family Medicine; Visit Provider Family Medicine
DX: C61 Malignant neoplasm of prostate (principal); I10 Essential (primary) hypertension
CPT/HCPCS: 80048; 84153

== ENCOUNTER → 2023-11-04 08:54 | Outpatient (CLI) | payer MEDICARE, SELFPAY ==
--- NOTE | 2023-11-04 08:55 | DI.CT.S_ITS ---
PROCEDURE: CT ABDOMEN PELVIS W CON INDICATIONS: Prostate cancer rising PSA TECHNIQUE: After the administration of intravenous contrast, axial sections acquired from the lung bases to the pubic symphysis. Coronal and sagittal reformats were performed. For radiation dose reduction, the following was used: automated exposure control, adjustment of mA and/or kV according to patient size. COMPARISON: [place], [place], [place] BONE SCAN WHOLE BODY, 08/12/2023, 14:26. [place] BONE SCAN WHOLE BODY, 11/04/2023, 11:04. [facility], CT, CT ABDOMEN PELVIS W CON, 08/12/2023, 12:17. [facility], CT, CT ABDOMEN PELVIS W CON, 11/06/2021, 12:51. FINDINGS: Image quality: Diagnostic. Lower Chest: No significant findings. ABDOMEN: Liver: No solid mass. Gallbladder: Gallstones are seen within the gallbladder. No additional CT signs of cholecystitis are seen. Biliary ducts: No biliary dilation. Pancreas: No ductal dilation. Spleen: The spleen is mildly enlarged, measuring 14.6 cm. Adrenal Glands: No adrenal nodules. Kidneys and Ureters: No hydronephrosis. No solid mass. No complex renal cystic lesion which requires follow up. A 6 mm nonobstructing left-sided kidney stone can be seen, measuring 550 Hounsfield units. Stomach and Bowel: Significant distal colonic diverticulosis is seen, without findings of active diverticulitis. The more proximal colon demonstrates no significant abnormality. No dilated loops of small bowel are seen. The stomach demonstrates no significant abnormality. Peritoneum: No abnormal intraperitoneal fluid. No free air. There is mild emily mesentery again seen, which is most commonly related to a chronic inflammatory process. Ventral Wall: No significant ventral hernia. Abdominal Nodes: A few prominent lymph nodes can be seen along the root of the mesentery, without fransisco enlargement. No enlarged retroperitoneal lymph nodes are seen. Vessels: Aorta and inferior vena cava are normal in size. Atherosclerotic calcification is noted. PELVIS: Pelvic Organs: Unremarkable. Bladder: No bladder wall thickening, accounting for underdistention. Pelvic Nodes: Several enlarged pelvic lymph nodes are seen, with the largest seen on the right adjacent to the external carotid artery measuring 3.7 x 2.4 cm in greatest axial dimension. A prominent left pelvic lymph node can be seen measuring 2 x 1.4 cm. Miscellaneous: Bilateral fat containing inguinal hernias are seen. Bones: The previously seen suspicious sclerotic bony metastatic disease is not well seen on the current study. 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 Lumbar spine postoperative hardware can be seen. IMPRESSION: Abnormally enlarged inguinal lymph nodes are seen, which are more prominent on the current study than on the prior and are highly suspicious for metastatic disease. The previously seen sclerotic bony metastatic disease is not well seen on the current CT. Additional findings: Gallstones Mild splenomegaly Nonobstructing left-sided kidney stone Lumbar postoperative change Diverticulosis, without active diverticulitis Bilateral fat containing inguinal hernias Dictated by: Gage Bradford M.D. on 11/04/2023 at 16:14 Approved by: Gage Bradford M.D. on 11/04/2023 at 16:22
--- NOTE | 2023-11-04 08:55 | DI.NM.S_ITS ---
PROCEDURE: [place] BONE SCAN WHOLE BODY RADIOPHARMACEUTICAL: 22.0 mCi Tc-99m MDP IV. INDICATIONS: Prostate cancer rising PSA TECHNIQUE: Delayed whole-body scintigrams were obtained approximately 3-4 hours after intravenous injection of radiotracer. Anterior and posterior views were acquired from vertex to feet. COMPARISON: [place], [place] BONE SCAN WHOLE BODY, 11/15/2021, 9:49. [place] BONE SCAN WHOLE BODY, 08/12/2023, 14:26. [facility], CT, CT ABDOMEN PELVIS W CON, 11/04/2023, 10:15. FINDINGS: There are foci of increased activity involving the lumbar spine, proximal right femur and proximal right tibia, unchanged. Mildly increased activity in sternum is also stable. No lesions are identified in skull, clavicles, scapulae, ribs, bony pelvis, and visualized shafts of the long bones. There are foci of increased uptake in cervical, thoracic and lumbar spine most likely secondary to degenerative disc and facet disease. There are multiple foci of increased periarticular activity compatible with degenerative/arthritic changes. IMPRESSION: 1. Stable bone scan. Please consider PSMA PET-CT if clinically indicated. Dictated by: Thania Varela M.D. on 11/04/2023 at 12:55 Approved by: Thania Varela M.D. on 11/05/2023 at 12:53
[2023-11-04 10:13] LABS: Blood Urea Nitrogen 16 mg/dL (9-20); Calcium 9.8 mg/dL (8.4-10.2); Carbon Dioxide 29 mmol/L (22-32); Chloride 102 mmol/L (98-107); Estimated Glomerular Filt Rate > 60 mL/min (>60); Glucose 143 mg/dL (80-110); HEMOLYSIS < 15 (0-50); Potassium 3.2 mmol/L (3.4-5.1); Sodium 141 mmol/L (137-145)
[2023-11-04 10:40] LABS: Prostate Specific Antigen 11.9 ng/mL (0.10-4.00)
== END ==
PROVIDERS: PCP Family Medicine; Referring Provider Urology; Visit Provider Urology
DX: R97.21 Rising PSA following treatment for malignant neoplasm of prostate (principal); Z00.00 Encounter for general adult medical examination without abnormal findings; C61 Malignant neoplasm of prostate; K57.30 Diverticulosis of large intestine without perforation or abscess without bleeding; R59.0 Localized enlarged lymph nodes
CPT/HCPCS: 36415; 74177; 78306; 80048; 84153; A9503; Q9967

== ENCOUNTER → 2023-12-22 11:35 | Outpatient (CLI) | payer MEDICARE, SELFPAY ==
[2023-12-22 19:21] LABS: Add Manual Diff / Slide Review NO; Basophils Absolute Auto 100 /uL (0-100); Basophils Percent Auto 0.9 % (0-2); Eosinophils Absolute Auto 200 /uL (0-450); Eosinophils Percent Auto 3.4 % (2-4); Hematocrit 39.5 % (41-53); Hemoglobin 13.8 g/dL (13.5-17.5); Lymphocytes Absolute Auto 1100 /uL (1100-4500); Lymphocytes Percent Auto 16.9 % (25-40); Mean Corpuscular HGB Conc 34.8 % (30-36); Mean Corpuscular Hemoglobin 32.1 PG (26-34); Mean Corpuscular Volume 92.1 fL (80-100); Monocytes Absolute Auto 600 /uL (0-900); Monocytes Percent Auto 8.6 % (3-14); Neutrophils Absolute Auto 4600 /uL (1500-7000); Neutrophils Percent Auto 70.2 % (50-75); Platelet Count 157 X10^3/uL (150-400); Red Cell Distribution Width 12.4 % (11.6-14.8); White Blood Cell Count 6.5 X10^3/uL (4.5-11.0)
[2023-12-22 19:44] LABS: BUN Creatinine Ratio 25.9 (6-22); Blood Urea Nitrogen 22 mg/dL (9-20); Calcium 9.9 mg/dL (8.4-10.2); Carbon Dioxide 31 mmol/L (22-32); Chloride 103 mmol/L (98-107); Estimated Glomerular Filt Rate > 60 mL/min (>60); Glucose 130 mg/dL (80-110); HEMOLYSIS 17 (0-50); Potassium 3.4 mmol/L (3.4-5.1); Sodium 140 mmol/L (137-145)
[2023-12-22 20:13] LABS: Vitamin D 25 Hydroxy (D3) 71.4 ng/mL (30.0-100.0)
[2023-12-22 20:20] LABS: TSH w/ Reflex to FT4 0.79 uIU/mL (0.47-4.68)
[2023-12-25 14:47] LABS: Prostate Specific Antigen 17.4 ng/mL (0.10-4.00)
== END ==
PROVIDERS: Urology; PCP Family Medicine; Visit Provider Family Medicine
DX: I10 Essential (primary) hypertension (principal); M85.80 Other specified disorders of bone density and structure, unspecified site; C61 Malignant neoplasm of prostate; E87.6 Hypokalemia; R79.89 Other specified abnormal findings of blood chemistry; E78.5 Hyperlipidemia, unspecified
CPT/HCPCS: 80048; 82306; 84153; 84443; 85025

== ENCOUNTER → 2024-03-23 11:50 | Outpatient (CLI) | payer MEDICARE, SELFPAY ==
[2024-03-24 14:33] LABS: Prostate Specific Antigen 32.1 ng/mL (0.10-4.00)
== END ==
PROVIDERS: PCP Family Medicine; Visit Provider Urology
DX: C61 Malignant neoplasm of prostate (principal)
CPT/HCPCS: 84153

== ENCOUNTER 2024-04-21 11:51 | Outpatient (CLI) | payer MEDICARE, SELFPAY ==
[2024-04-21] VITALS (8 sets, daily range): BP systolic 121–164; BP diastolic 65–95; PULSE 52–76; RESP 14–20; TEMP 36.8; O2SAT 94–98
--- NOTE | 2024-04-21 13:00 | DI.RAD.S_ITS ---
PROCEDURE: PAIN L INTERLAMINAR/CAUDAL INJ INDICATIONS: LUMBAR RADICULOPATHY COMPARISON: [facility], XA, PAIN L INTERLAMINAR/CAUDAL INJ, 02/26/2023, 11:29. FINDINGS: Fluoroscopic spot filming was performed to verify placement of spinal needles at the lower coccyx level(s), as labeled on the films. Appropriate location(s) of the needle tip(s) was confirmed by injection of iodinated contrast. IMPRESSION: Fluoroscopy for caudal epidural steroid injection. Dictated by: Heather Chambers M.D. on 04/21/2024 at 16:24 Approved by: Heather Chambers M.D. on 04/21/2024 at 16:25
[2024-04-21] MEDS: MIDAZOLAM 2 MG/2 ML VIAL 1 MG IV (13:06)
[2024-04-21] MEDS: iopamidoL 15 ML VIAL 3 ML INJ (13:12)
[2024-04-21] MEDS: DEXAMETHASONE 10 MG/ML VIAL INJ (13:12)
[2024-04-21] MEDS: LIDOCAINE 1% (PF) 5 ML INJ (13:13)
--- NOTE | 2024-04-21 14:44 | P.PCN_ITS ---
Date/Time/Diagnoses Date of procedure: 04/21/24 Time of procedure: 13:00 Procedure Notes Physician: Waldemar Powell Total Fluoroscopy time (seconds): 8 Total sedation minutes: 10 Procedure in detail & Post-procedure care: Caudal Epidural Steroid Injection Indications: Rose is presenting for treatment of lumbar radiculopathy with low back and leg pain. Preoperative diagnosis: Lumbar radiculopathy Postoperative diagnosis: Same Focused Examination: Ax3 Mood and affect are normal Vital Signs: VSS ASA: 2 Consent: Following review of allergies and potential side effects/complications, including, but not necessarily limited to, infection, allergic reaction, local tissue breakdown, stroke, temporary or permanent nerve injury, paralysis, and possible , the patient indicated that they understood and agreed to proc eed.? An informed consent document was signed by the patient, witnessed by a nurse and placed in the patient's chart.? Additionally, other treatment options including medications and physical therapy were reviewed with the patient. All questions were answered. Site was then marked. Anesthesia: After review of previous anesthetic history and IV conscious sedation, the patient was deemed safe to proceed with today's procedure with IV conscious sedation. IV sedation was accomplished with diazepam 1 mg administered by the RN after order by Dr. Powell. Sedation was titrated to patient comfort during the course of the procedure. Patient remained responsive to all verbal commands. Position: Prone Monitoring: NIBP, Pulse oximetry, 3 lead EKG Needle used: 25 gauge, 3.5 in spinal Contrast: Isovue 300-M 2mL Injectate: Dexamethasone 10 mg with 1% lidocaine 2 mL and normal saline 2 mL Technique: The skin was prepped with chloraprep and then draped in a sterile fashion. Time out was performed as per protocol. Oxygen applied via NC. The entry point for entering/approaching the epidural space by a caudal approach through the sacral hiatus was identified. Skin and subcutaneous structures of t he needle entry site was then infiltrated with 3 mL of lidocaine 1%. Under AP and lateral control, the needle was guided through the sacral hiatus to the S3 level. Contrast was then injected and the spread was consistent with the epidural space. There was no evidence for intravascular or intrathecal uptake. After negative aspiration, the above-mentioned injectate was then slowly administered and the needle withdrawn. The patient expressed no unusual discomfort or paresthesias during needle positioning or injection. Band-Aids applied to injection sites. EBL: less than 1 ml Complications: None Post Procedure: Patient was taken to the recovery and monitored. The patient was provided a Pain Log to continue to record the patient's response to the target- specific procedure prior to the patient's follow-up visit with the referring physician. Patient was stable upon discharge. Detailed post procedure instructions were provided. Patient was asked to call in the event of worsening pain, fever, weakness, numbness or bladder or bowel incontinence.
== END 2024-04-21 13:37 | disposition home or self-care (01) ==
LOC: RAD 11:52
PROVIDERS: PCP Family Medicine; Referring Provider Anesthesiology; Visit Provider Anesthesiology
DX: M54.16 Radiculopathy, lumbar region (principal)
CPT/HCPCS: 62323; 99152; J1100; J2250

== ENCOUNTER → 2024-05-06 12:00 | Outpatient (CLI) | payer MEDICARE, SELFPAY ==
[2024-05-06 19:00] LABS: Alanine Aminotransferase 17 IU/L (<50); Albumin 4.2 g/dL (3.5-5.0); Alkaline Phosphatase 51 U/L (38-126); Aspartate Aminotransferase 24 IU/L (17-59); BUN Creatinine Ratio 17.7 (6-22); Blood Urea Nitrogen 17 mg/dL (9-20); Calcium 9.9 mg/dL (8.4-10.2); Carbon Dioxide 29 mmol/L (22-32); Chloride 100 mmol/L (98-107); Estimated Glomerular Filt Rate > 60 mL/min (>60); Globulin 2.1 g/dL (1.7-4.1); Glucose 150 mg/dL (80-110); HEMOLYSIS < 15 (0-50); Potassium 3.4 mmol/L (3.4-5.1); Sodium 139 mmol/L (137-145); Total Protein 6.3 g/dL (6.3-8.2)
[2024-05-06 19:14] LABS: Add Manual Diff / Slide Review NO; Basophils Absolute Auto 100 /uL (0-100); Eosinophils Absolute Auto 200 /uL (0-450); Eosinophils Percent Auto 2.1 % (2-4); Hematocrit 41.3 % (41-53); Hemoglobin 14.4 g/dL (13.5-17.5); Lymphocytes Absolute Auto 900 /uL (1100-4500); Lymphocytes Percent Auto 11.1 % (25-40); Mean Corpuscular HGB Conc 34.8 % (30-36); Mean Corpuscular Hemoglobin 32.2 PG (26-34); Mean Corpuscular Volume 92.4 fL (80-100); Monocytes Absolute Auto 500 /uL (0-900); Neutrophils Absolute Auto 6100 /uL (1500-7000); Neutrophils Percent Auto 78.8 % (50-75); Platelet Count 151 X10^3/uL (150-400); Red Blood Cell Count 4.47 X10^6/uL (4.5-5.9); Red Cell Distribution Width 12.8 % (11.6-14.8); White Blood Cell Count 7.8 X10^3/uL (4.5-11.0)
[2024-05-06 19:33] LABS: Prostate Specific Antigen 14.7 ng/mL (0.10-4.00)
== END ==
PROVIDERS: PCP Family Medicine; Visit Provider Internal Medicine Hematology & Oncology
DX: C61 Malignant neoplasm of prostate (principal)
CPT/HCPCS: 80053; 84153; 85025

== ENCOUNTER → 2024-05-18 14:14 | Outpatient (CLI) | payer MEDICARE, SELFPAY ==
[2024-05-18 20:15] LABS: Add Manual Diff / Slide Review NO; Basophils Absolute Auto 100 /uL (0-100); Basophils Percent Auto 1.3 % (0-2); Eosinophils Absolute Auto 200 /uL (0-450); Eosinophils Percent Auto 2.2 % (2-4); Hemoglobin 14.2 g/dL (13.5-17.5); Lymphocytes Absolute Auto 900 /uL (1100-4500); Lymphocytes Percent Auto 12.8 % (25-40); Mean Corpuscular HGB Conc 34.7 % (30-36); Mean Corpuscular Hemoglobin 31.7 PG (26-34); Mean Corpuscular Volume 91.5 fL (80-100); Monocytes Absolute Auto 600 /uL (0-900); Monocytes Percent Auto 7.7 % (3-14); Neutrophils Absolute Auto 5600 /uL (1500-7000); Platelet Count 179 X10^3/uL (150-400); Red Blood Cell Count 4.48 X10^6/uL (4.5-5.9); White Blood Cell Count 7.4 X10^3/uL (4.5-11.0)
[2024-05-18 20:34] LABS: Alanine Aminotransferase 17 IU/L (<50); Albumin 4.1 g/dL (3.5-5.0); Albumin Globulin Ratio 2.1 (1.0-2.8); Alkaline Phosphatase 53 U/L (38-126); Aspartate Aminotransferase 27 IU/L (17-59); Bilirubin Total 0.6 mg/dL (0.2-1.3); Blood Urea Nitrogen 25 mg/dL (9-20); Calcium 9.9 mg/dL (8.4-10.2); Carbon Dioxide 30 mmol/L (22-32); Chloride 104 mmol/L (98-107); Estimated Glomerular Filt Rate > 60 mL/min (>60); Glucose 127 mg/dL (80-110); HEMOLYSIS < 15 (0-50); Potassium 3.4 mmol/L (3.4-5.1); Sodium 141 mmol/L (137-145); Total Protein 6.1 g/dL (6.3-8.2)
[2024-05-18 21:07] LABS: Prostate Specific Antigen 11.5 ng/mL (0.10-4.00)
== END ==
PROVIDERS: PCP Family Medicine; Visit Provider Internal Medicine Hematology & Oncology
DX: C61 Malignant neoplasm of prostate (principal)
CPT/HCPCS: 80053; 84153; 85025

== ENCOUNTER → 2024-06-16 14:01 | Outpatient (CLI) | payer MEDICARE, SELFPAY ==
[2024-06-16 19:05] LABS: Add Manual Diff / Slide Review NO; Basophils Absolute Auto 100 /uL (0-100); Basophils Percent Auto 1.3 % (0-2); Eosinophils Absolute Auto 100 /uL (0-450); Eosinophils Percent Auto 1.7 % (2-4); Hematocrit 41.3 % (41-53); Hemoglobin 14.4 g/dL (13.5-17.5); Lymphocytes Absolute Auto 800 /uL (1100-4500); Lymphocytes Percent Auto 9.7 % (25-40); Mean Corpuscular HGB Conc 34.8 % (30-36); Mean Corpuscular Hemoglobin 31.9 PG (26-34); Mean Corpuscular Volume 91.8 fL (80-100); Monocytes Absolute Auto 600 /uL (0-900); Monocytes Percent Auto 7.7 % (3-14); Neutrophils Absolute Auto 6500 /uL (1500-7000); Neutrophils Percent Auto 79.6 % (50-75); Platelet Count 171 X10^3/uL (150-400); Red Blood Cell Count 4.51 X10^6/uL (4.5-5.9); Red Cell Distribution Width 12.7 % (11.6-14.8); White Blood Cell Count 8.2 X10^3/uL (4.5-11.0)
[2024-06-16 20:42] LABS: Alanine Aminotransferase 20 IU/L (<50); Albumin 4.2 g/dL (3.5-5.0); Albumin Globulin Ratio 1.8 (1.0-2.8); Alkaline Phosphatase 52 U/L (38-126); Aspartate Aminotransferase 47 IU/L (17-59); BUN Creatinine Ratio 20.4 (6-22); Blood Urea Nitrogen 19 mg/dL (9-20); Calcium 10.3 mg/dL (8.4-10.2); Carbon Dioxide 30 mmol/L (22-32); Chloride 103 mmol/L (98-107); Estimated Glomerular Filt Rate > 60 mL/min (>60); Globulin 2.4 g/dL (1.7-4.1); Glucose 139 mg/dL (80-110); HEMOLYSIS < 15 (0-50); Sodium 141 mmol/L (137-145); Total Protein 6.6 g/dL (6.3-8.2)
[2024-06-16 21:09] LABS: Prostate Specific Antigen 7.25 ng/mL (0.10-4.00)
== END ==
PROVIDERS: PCP Family Medicine; Visit Provider Internal Medicine Hematology & Oncology
DX: C61 Malignant neoplasm of prostate (principal)
CPT/HCPCS: 80053; 84153; 85025

== ENCOUNTER → 2024-06-30 14:03 | Outpatient (CLI) | payer MEDICARE, SELFPAY ==
[2024-06-30 20:34] LABS: Add Manual Diff / Slide Review NO; Basophils Absolute Auto 100 /uL (0-100); Basophils Percent Auto 1.2 % (0-2); Eosinophils Absolute Auto 100 /uL (0-450); Eosinophils Percent Auto 1.6 % (2-4); Hematocrit 39.6 % (41-53); Hemoglobin 13.8 g/dL (13.5-17.5); Lymphocytes Absolute Auto 800 /uL (1100-4500); Lymphocytes Percent Auto 11.6 % (25-40); Mean Corpuscular HGB Conc 34.8 % (30-36); Mean Corpuscular Hemoglobin 31.9 PG (26-34); Mean Corpuscular Volume 91.6 fL (80-100); Monocytes Absolute Auto 600 /uL (0-900); Monocytes Percent Auto 8.1 % (3-14); Neutrophils Absolute Auto 5300 /uL (1500-7000); Neutrophils Percent Auto 77.5 % (50-75); Platelet Count 162 X10^3/uL (150-400); Red Blood Cell Count 4.33 X10^6/uL (4.5-5.9); Red Cell Distribution Width 12.7 % (11.6-14.8); White Blood Cell Count 6.8 X10^3/uL (4.5-11.0)
[2024-06-30 20:47] LABS: Alanine Aminotransferase 19 IU/L (<50); Albumin 3.9 g/dL (3.5-5.0); Albumin Globulin Ratio 1.6 (1.0-2.8); Alkaline Phosphatase 52 U/L (38-126); Aspartate Aminotransferase 53 IU/L (17-59); BUN Creatinine Ratio 25.3 (6-22); Bilirubin Total 0.6 mg/dL (0.2-1.3); Blood Urea Nitrogen 22 mg/dL (9-20); Carbon Dioxide 28 mmol/L (22-32); Chloride 104 mmol/L (98-107); Estimated Glomerular Filt Rate > 60 mL/min (>60); Globulin 2.5 g/dL (1.7-4.1); Glucose 115 mg/dL (80-110); HEMOLYSIS 20 (0-50); Potassium 3.5 mmol/L (3.4-5.1); Sodium 138 mmol/L (137-145); Total Protein 6.4 g/dL (6.3-8.2)
[2024-06-30 21:21] LABS: Prostate Specific Antigen 5.29 ng/mL (0.10-4.00)
== END ==
PROVIDERS: PCP Family Medicine; Visit Provider Internal Medicine Hematology & Oncology
DX: C61 Malignant neoplasm of prostate (principal)
CPT/HCPCS: 80053; 84153; 85025

== ENCOUNTER → 2024-07-14 14:10 | Outpatient (CLI) | payer MEDICARE, SELFPAY ==
[2024-07-14 18:57] LABS: Add Manual Diff / Slide Review NO; Basophils Absolute Auto 100 /uL (0-100); Basophils Percent Auto 0.9 % (0-2); Eosinophils Absolute Auto 300 /uL (0-450); Eosinophils Percent Auto 2.8 % (2-4); Hematocrit 41.7 % (41-53); Hemoglobin 14.5 g/dL (13.5-17.5); Lymphocytes Absolute Auto 900 /uL (1100-4500); Lymphocytes Percent Auto 10.4 % (25-40); Mean Corpuscular HGB Conc 34.8 % (30-36); Mean Corpuscular Hemoglobin 31.8 PG (26-34); Mean Corpuscular Volume 91.3 fL (80-100); Monocytes Absolute Auto 700 /uL (0-900); Monocytes Percent Auto 8.1 % (3-14); Neutrophils Absolute Auto 7100 /uL (1500-7000); Neutrophils Percent Auto 77.8 % (50-75); Platelet Count 172 X10^3/uL (150-400); Red Blood Cell Count 4.57 X10^6/uL (4.5-5.9); Red Cell Distribution Width 12.9 % (11.6-14.8); White Blood Cell Count 9.1 X10^3/uL (4.5-11.0)
[2024-07-14 19:17] LABS: Alanine Aminotransferase 18 IU/L (<50); Albumin 4.3 g/dL (3.5-5.0); Albumin Globulin Ratio 1.7 (1.0-2.8); Alkaline Phosphatase 56 U/L (38-126); Aspartate Aminotransferase 53 IU/L (17-59); BUN Creatinine Ratio 21.1 (6-22); Bilirubin Total 0.8 mg/dL (0.2-1.3); Blood Urea Nitrogen 20 mg/dL (9-20); Calcium 10.4 mg/dL (8.4-10.2); Carbon Dioxide 30 mmol/L (22-32); Chloride 102 mmol/L (98-107); Estimated Glomerular Filt Rate > 60 mL/min (>60); Globulin 2.6 g/dL (1.7-4.1); Glucose 100 mg/dL (80-110); HEMOLYSIS 20 (0-50); Potassium 3.3 mmol/L (3.4-5.1); Sodium 141 mmol/L (137-145); Total Protein 6.9 g/dL (6.3-8.2)
[2024-07-14 19:48] LABS: Prostate Specific Antigen 4.66 ng/mL (0.10-4.00)
== END ==
PROVIDERS: PCP Family Medicine; Visit Provider Internal Medicine Hematology & Oncology
DX: C61 Malignant neoplasm of prostate (principal)
CPT/HCPCS: 80053; 84153; 85025

== ENCOUNTER → 2024-07-28 14:10 | Outpatient (CLI) | payer MEDICARE, SELFPAY ==
[2024-07-28 19:10] LABS: Add Manual Diff / Slide Review NO; Basophils Absolute Auto 100 /uL (0-100); Basophils Percent Auto 0.9 % (0-2); Eosinophils Absolute Auto 200 /uL (0-450); Eosinophils Percent Auto 1.9 % (2-4); Hematocrit 43.6 % (41-53); Lymphocytes Absolute Auto 1000 /uL (1100-4500); Lymphocytes Percent Auto 9.5 % (25-40); Mean Corpuscular HGB Conc 34.3 % (30-36); Mean Corpuscular Hemoglobin 31.4 PG (26-34); Mean Corpuscular Volume 91.5 fL (80-100); Monocytes Absolute Auto 700 /uL (0-900); Monocytes Percent Auto 6.9 % (3-14); Neutrophils Absolute Auto 8500 /uL (1500-7000); Neutrophils Percent Auto 80.8 % (50-75); Platelet Count 204 X10^3/uL (150-400); Red Blood Cell Count 4.76 X10^6/uL (4.5-5.9); White Blood Cell Count 10.6 X10^3/uL (4.5-11.0)
[2024-07-28 19:22] LABS: Alanine Aminotransferase 18 IU/L (<50); Albumin 4.4 g/dL (3.5-5.0); Alkaline Phosphatase 69 U/L (38-126); Aspartate Aminotransferase 25 IU/L (17-59); BUN Creatinine Ratio 21.1 (6-22); Bilirubin Total 0.7 mg/dL (0.2-1.3); Blood Urea Nitrogen 19 mg/dL (9-20); Calcium 9.8 mg/dL (8.4-10.2); Carbon Dioxide 29 mmol/L (22-32); Chloride 102 mmol/L (98-107); Estimated Glomerular Filt Rate > 60 mL/min (>60); Globulin 2.2 g/dL (1.7-4.1); Glucose 138 mg/dL (80-110); HEMOLYSIS < 15 (0-50); Potassium 3.4 mmol/L (3.4-5.1); Sodium 140 mmol/L (137-145); Total Protein 6.6 g/dL (6.3-8.2)
[2024-07-28 19:51] LABS: Prostate Specific Antigen 3.65 ng/mL (0.10-4.00)
== END ==
PROVIDERS: PCP Family Medicine; Visit Provider Internal Medicine Hematology & Oncology
DX: C61 Malignant neoplasm of prostate (principal)
CPT/HCPCS: 80053; 84153; 85025

== ENCOUNTER → 2024-09-22 11:29 | Outpatient (CLI) | payer MEDICARE, SELFPAY ==
[2024-09-22 20:26] LABS: Prostate Specific Antigen 1.87 ng/mL (0.10-4.00)
== END ==
PROVIDERS: PCP Family Medicine; Visit Provider Urology
DX: R97.21 Rising PSA following treatment for malignant neoplasm of prostate (principal); R39.9 Unspecified symptoms and signs involving the genitourinary system; N32.0 Bladder-neck obstruction; N42.9 Disorder of prostate, unspecified; N40.1 Benign prostatic hyperplasia with lower urinary tract symptoms; R39.14 Feeling of incomplete bladder emptying
CPT/HCPCS: 84153

== ENCOUNTER → 2024-12-27 10:34 | Outpatient (CLI) | payer MEDICARE, SELFPAY ==
[2024-12-27 19:27] LABS: Prostate Specific Antigen 1.25 ng/mL (0.10-4.00)
== END ==
PROVIDERS: PCP Family Medicine; Visit Provider Urology
DX: R97.21 Rising PSA following treatment for malignant neoplasm of prostate (principal); Z79.818 Long term (current) use of other agents affecting estrogen receptors and estrogen levels
CPT/HCPCS: 84153

== ENCOUNTER → 2025-02-15 10:36 | Outpatient (CLI) | payer MEDICARE, SELFPAY ==
--- NOTE | 2025-02-15 10:40 | DI.MRI.S_ITS ---
PROCEDURE: MR LUMBAR SPINE WO CON INDICATIONS: Sacral radiculopathy with loss of LE strength and collapse TECHNIQUE: Noncontrast sagittal T1 spin echo and T2 fast echo, sagittal STIR, and T2 fast spin echo through the lumbar spine. In cases with scoliosis, additional coronal T2 fast spin echo may be performed. COMPARISON: [facility], MR, L-SPINE WITHOUT CONTRAST, 08/12/2017, 9:21. [facility], MR, MR LUMBAR SPINE WO/W CON, 01/13/2023, 9:08. FINDINGS: Image quality: Excellent. Alignment and Curvature: Minimal dextrocurvature. Grade 1 retrolisthesis of L1 on L2 and L2 on L3. Focal exaggerated lordosis L4 stable. Bone Marrow: Postoperative changes from L3 through L5 posterior spinal fixation and discectomy. Mild multilevel degenerative endplate changes. Marrow is of normal overall signal. No acute vertebral body compression fractures. Spinal Cord: Conus medullaris terminates at the upper L1 level. Visualized cord demonstrates normal signal and size. Paraspinous Soft Tissues: No paravertebral masses. T12-L1: Disc desiccation. Mild disc bulge. Facet arthropathy. Mild central canal stenosis and mild bilateral neural foraminal stenosis is stable. L1-L2: Disc desiccation and moderate height loss. Diffuse disc bulge. Facet hypertrophy. Mild central canal stenosis. Moderate bilateral neural foraminal stenosis. Stable compared to prior. L2-L3: Disc desiccation and moderate height loss. Diffuse disc bulge. Facet arthropathy and thickening of ligamentum flavum. Epidural lipomatosis. Severe central canal stenosis appears progressed compared to prior. Severe left neural foraminal stenosis is progressed. Stable moderate right neural foraminal stenosis. L3-L4: Postoperative changes. Residual disc bulge. Facet arthropathy. Kxon-er-[id number] central canal stenosis is mildly improved compared to prior. Severe left lateral recess stenosis is redemonstrated with possible impingement the descending left L4 nerve root. Moderate bilateral neural foraminal stenosis is stable. L4-L5: Postoperative changes. Mild central canal stenosis. Moderate to severe right and moderate left neural foraminal stenosis is stable. L5-S1: Disc desiccation. Mild disc bulge. Facet arthropathy. Mild central canal stenosis. Moderate bilateral neural foraminal stenosis is stable. IMPRESSION: 1. Multilevel degenerative changes of the lumbar spine status post L3 through L5 posterior spinal fixation. There is progression at L2-L3 as described above. 2. Severe central canal stenosis at L2-L3. 3. Severe left lateral recess stenosis at L3-L4 with possible impingement of the descending left L4 nerve root. 4. Severe left neural foraminal stenosis at L2-L3. Moderate to severe right neural foraminal stenosis at L4-5. Dictated by: Azar Mcintosh M.D. on 02/15/2025 at 14:47 Approved by: Azar Mcintosh M.D. on 02/15/2025 at 14:55
== END ==
PROVIDERS: PCP Family Medicine; Referring Provider Family Medicine; Visit Provider Family Medicine
DX: M54.18 Radiculopathy, sacral and sacrococcygeal region (principal); R29.898 Other symptoms and signs involving the musculoskeletal system; M47.816 Spondylosis without myelopathy or radiculopathy, lumbar region; M47.817 Spondylosis without myelopathy or radiculopathy, lumbosacral region; M48.061 Spinal stenosis, lumbar region without neurogenic claudication; M48.07 Spinal stenosis, lumbosacral region; Z98.1 Arthrodesis status
CPT/HCPCS: 72148

== ENCOUNTER → 2025-03-28 12:22 | Outpatient (CLI) | payer MEDICARE, SELFPAY ==
[2025-03-28 19:23] LABS: Add Manual Diff / Slide Review NO; Hematocrit 39.3 % (41-53); Hemoglobin 13.7 g/dL (13.5-17.5); Lymphocytes Absolute Auto 1000 /uL (1100-4500); Mean Corpuscular HGB Conc 34.8 % (30-36); Mean Corpuscular Hemoglobin 32.2 PG (26-34); Mean Corpuscular Volume 92.5 fL (80-100); Platelet Count 180 X10^3/uL (150-400)
[2025-03-28 19:37] LABS: Hemoglobin A1C% w Est Avg Glu 5.3 % (4.0-6.0)
[2025-03-28 19:45] LABS: Alanine Aminotransferase 16 IU/L (<50); Albumin 4.4 g/dL (3.5-5.0); Albumin Globulin Ratio 2.2 (1.0-2.8); Alkaline Phosphatase 46 U/L (38-126); Blood Urea Nitrogen 19 mg/dL (9-20); Calcium 9.9 mg/dL (8.4-10.2); Carbon Dioxide 25 mmol/L (22-32); Chloride 104 mmol/L (98-107); Estimated Glomerular Filt Rate > 60 mL/min (>60); Globulin 2.0 g/dL (1.7-4.1); Glucose 145 mg/dL (70-99); HEMOLYSIS < 15 (0-50); Potassium 3.1 mmol/L (3.4-5.1); Sodium 139 mmol/L (137-145); Total Protein 6.4 g/dL (6.3-8.2)
[2025-03-28 20:15] LABS: Prostate Specific Antigen 1.87 ng/mL (0.10-4.00)
[2025-03-30 15:39] LABS: Free Kappa Lt Chains, Serum 11.9 mg/L (3.3-19.4); Free Lambda Lt Chains,Serum 13.0 mg/L (5.7-26.3)
[2025-03-31 11:36] LABS: Immunoglobulin G,Serum 481 mg/dL (603-1613)
[2025-03-31 13:11] LABS: Albumin 3.9 g/dL (2.9-4.4); Alpha-1-Globulin 0.2 g/dL (0.0-0.4); Alpha-2-Globulin 0.7 g/dL (0.4-1.0); Gamma Globulin 0.5 g/dL (0.4-1.8)
== END ==
PROVIDERS: Urology; PCP Family Medicine; Visit Provider Family Medicine
DX: R73.03 Prediabetes (principal); M54.9 Dorsalgia, unspecified; C61 Malignant neoplasm of prostate
CPT/HCPCS: 80053; 82784; 83036; 83883; 84153; 84155; 84165; 85025; 85651; 86140; 86334

== ENCOUNTER → 2025-06-15 13:53 | Outpatient (CLI) | payer MEDICARE, SELFPAY ==
[2025-06-15 18:39] LABS: Hematocrit 37.3 % (41-53); Hemoglobin 13.1 g/dL (13.5-17.5); Mean Corpuscular HGB Conc 35.2 % (30-36); Mean Corpuscular Hemoglobin 32.6 PG (26-34); Mean Corpuscular Volume 92.8 fL (80-100); Platelet Count 178 X10^3/uL (150-400)
[2025-06-15 18:48] LABS: HEMOLYSIS < 15 (0-50); Iron 122 ug/dL (49-181)
[2025-06-15 18:52] LABS: Blood Urea Nitrogen 27 mg/dL (9-20); Calcium 9.7 mg/dL (8.4-10.2); Carbon Dioxide 27 mmol/L (22-32); Chloride 105 mmol/L (98-107); Estimated Glomerular Filt Rate > 60 mL/min (>60); Glucose 161 mg/dL (70-99); HEMOLYSIS < 15 (0-50); Potassium 3.5 mmol/L (3.4-5.1); Sodium 139 mmol/L (137-145)
[2025-06-15 19:12] LABS: Percent Iron Saturation 47 % (20-50); Total Iron Binding Capacity 257 ug/dL (261-462); Transferrin 207 mg/dL (206-381)
[2025-06-15 19:21] LABS: Prostate Specific Antigen 5.11 ng/mL (0.10-4.00)
[2025-06-15 19:26] LABS: Ferritin 218 ng/mL (18-464)
== END ==
PROVIDERS: Urology; PCP Family Medicine; Visit Provider Family Medicine
DX: D64.9 Anemia, unspecified (principal); C61 Malignant neoplasm of prostate; E87.6 Hypokalemia
CPT/HCPCS: 80048; 82728; 83540; 83550; 84153; 85027

== ENCOUNTER 2025-06-21 12:07 | Outpatient (CLI) | payer MEDICARE, SELFPAY ==
[2025-06-21] VITALS (9 sets, daily range): BP systolic 141–188; BP diastolic 70–85; PULSE 51–73; RESP 13–20; TEMP 36.2; O2SAT 96–100
[2025-06-21] MEDS: MIDAZOLAM 2 MG/2 ML VIAL 1 MG IV (14:26)
[2025-06-21] MEDS: BETAMETHASONE 30 MG/5 ML MDV 12 MG INJ (14:30)
--- NOTE | 2025-06-21 14:42 | PM.PROC.IR.1 ---
Date/Time/Diagnoses Date of procedure: 06/21/25 Time of procedure: 14:42 Pre-procedure diagnosis: 1. FORAMINAL STENOSIS WITH LE SYMPTOMS Post-procedure diagnosis: same Procedure Notes Procedure: 1. FLUOROSCOPICALLY GUIDED CONTRAST CONTROLLED TRANSFORAMINAL EPIDURAL STEROID INJECTION - Left L5/S1 Indications: Rose is referred by Dr. Felton for treatment of Foraminal Stenosis with Left LE Symptoms Physician: Ilir Toure Total Fluoroscopy time (seconds): 12 Total sedation minutes: 13 Complications: none Procedure in detail & Post-procedure care: FINDINGS Foraminal Nerve Root Compression secondary to disc disease and facet hypertrophy DESCRIPTION OF PROCEDURE Following review of allergy and review of potential side effects and complications, including, but not necessarily limited to, infection, allergic reaction, local tissue breakdown, stroke, temporary or permanent nerve injury, paralysis, and possible , the patient indicated that the patient understood and agreed to proceed. An informed consent document was signed by the patient, witnessed by a nurse, and placed in the patient's chart. Additionally, other treatment options including medications, modalities, and physical therapy were reviewed with the patient. After review of previous anaesthesic history and IV conscious sedation the patient was deemed safe to proceed with today?s procedure with IV conscious sedation as ASA class II designation. Safety time-out was performed to confirm patient ID, procedure to be performed and site of procedure. IV sedation was accomplished with a combination of 1mg of Versed was administered by the RN after DO order, titrated to patient comfort during the course of the procedure while the patient remained responsive to all verbal commands In the prone position following sterile prep and drape of the lumbar region, the Left L5/S1 posterior neuroforamen was identified fluoroscopically. The skin was anesthetized via a 25-gauge 1.5-inch needle with 1% lidocaine solution. At this point, a 25-gauge 3.5-inch spinal needle was atraumatically introduced and advanced under fluoroscopic guidance through the posterior Left L5/S1 neuroforamen to approximately the anterior aspect of the canal. Depth was confirmed on lateral view. Following negative aspiration, injection of approximately 1.5 cc of Isovue 200 under live fluoroscopy in the AP view confirmed excellent flow along the nerve root, into the epidural space without vascular or intrathecal uptake observed Radiological data, including multiple fluoroscopic views of the lumbosacral spine, reveal a spinal needle at the Left L5/S1 posterior neuroforamen. Subsequent views show flow of contrast material flowing superiorly and inferiorly along the nerve root confirming epidural flow. Subsequently, a test dose of 1.5cc of 0.25%marcaine solution was administered and patient was observed for two minutes for signs or symptoms of complications, including abdominal pain, shortness of breath, bilateral upper or lower extremity weakness, nausea and vomiting, prior to steroid injection. At this point, a total of 3cc or 10mg of dexamethasone and 12mg of betamethasone was injected without incident. The procedure tolerated the procedure well without signs or symptoms of complications prior to transfer to the recovery area continued monitoring without incident. The patient was then transferred to the recovery area where they were observed for an appropriate time after the injection. The patient reported a VAS score of 7 prior to the procedure and a post-procedure VAS of 0. POST OP INSTRUCTIONS The patient was provided a Pain Log to continue to record their response to the target-specific procedure prior to follow-up visit with their referring physician. Additionally, specific post-injection care instructions and a contact number to our office were provided if concerns arise regarding possible complications associated with the procedure are suspected.
== END 2025-06-21 14:59 | disposition home or self-care (01) ==
PROVIDERS: PCP Family Medicine; Referring Provider Family Medicine; Visit Provider Physical Medicine & Rehabilitation
DX: M48.07 Spinal stenosis, lumbosacral region (principal); M51.17 Intervertebral disc disorders with radiculopathy, lumbosacral region; M47.27 Other spondylosis with radiculopathy, lumbosacral region
CPT/HCPCS: 64483; 99152; J0702; J1100; J2250

== ENCOUNTER → 2025-07-25 10:54 | Outpatient (CLI) | payer MEDICARE, SELFPAY ==
[2025-07-25 18:41] LABS: Add Manual Diff / Slide Review NO; Hematocrit 36.6 % (41-53); Hemoglobin 13.0 g/dL (13.5-17.5); Lymphocytes Absolute Auto 700 /uL (1100-4500); Mean Corpuscular HGB Conc 35.5 % (30-36); Mean Corpuscular Hemoglobin 32.6 PG (26-34); Mean Corpuscular Volume 91.9 fL (80-100); Platelet Count 166 X10^3/uL (150-400)
[2025-07-25 18:52] LABS: Alanine Aminotransferase 15 IU/L (<50); Albumin 4.1 g/dL (3.5-5.0); Albumin Globulin Ratio 1.9 (1.0-2.8); Alkaline Phosphatase 54 U/L (38-126); Blood Urea Nitrogen 20 mg/dL (9-20); Calcium 9.7 mg/dL (8.4-10.2); Carbon Dioxide 26 mmol/L (22-32); Chloride 103 mmol/L (98-107); Estimated Glomerular Filt Rate > 60 mL/min (>60); Globulin 2.2 g/dL (1.7-4.1); Glucose 147 mg/dL (70-99); HEMOLYSIS < 15 (0-50); Potassium 3.5 mmol/L (3.4-5.1); Sodium 140 mmol/L (137-145); Total Protein 6.3 g/dL (6.3-8.2)
[2025-07-25 19:25] LABS: Prostate Specific Antigen 7.74 ng/mL (0.10-4.00)
== END ==
PROVIDERS: PCP Family Medicine; Visit Provider Internal Medicine Hematology & Oncology
DX: C61 Malignant neoplasm of prostate (principal)
CPT/HCPCS: 80053; 84153; 84403; 85025

== ENCOUNTER → 2025-08-08 10:52 | Outpatient (CLI) | payer MEDICARE, SELFPAY | PROVIDERS: PCP Family Medicine; Visit Provider Urology | DX: N40.1 Benign prostatic hyperplasia with lower urinary tract symptoms (principal) | CPT/HCPCS: 87077; 87086 ==